=== PATIENT | male | born 1985 | race Caucasian/White ===

== ENCOUNTER 2018-01-26 20:44 | Emergency (ER) | payer SELFPAY ==
[~2018-01-26] VITALS: Ht 185.4 cm; Wt 115.7 kg
[2018-01-26 21:11] VITALS: BP 127/64
[2018-01-26 21:19] VITALS: BP 127/64
--- NOTE | 2018-01-26 21:19 | NUR ---
TO LOBBY A/W BED, AND FOR XRAY, KYLE GARIBAY, ERMD NOTED
--- NOTE | 2018-01-26 22:37 | NUR ---
PATIENT LEFT WITHOUT BEING SEEN BY DR. URBINA. NO FURTHER CARE PROVIDED FOR PATIENT.
== END 2018-01-26 22:37 | disposition left against medical advice (07) ==
LOC: MED 20:44
DX: M79.645 Pain in left finger(s) (principal); Z53.21 Procedure and treatment not carried out due to patient leaving prior to being seen by health care provider